=== PATIENT | male | born 1970 | race African-American/Black ===

== ENCOUNTER 2023-01-05 12:18 | Emergency (ER) | payer MEDICAID ==
[~2023-01-05] VITALS: Ht 180.3 cm; Wt 134.0 kg
[2023-01-05 12:36] VITALS: O2SAT 96
[2023-01-05] MEDS ORDERED: IPRATROPIUM BROMIDE (0.02%) 0.5MG/2.5ML NEB HHN NR (14:05)
[2023-01-05] MEDS ORDERED: ALBUTEROL (0.083%) 2.5MG/3ML NEB HHN NR (14:05)
[2023-01-05] MEDS ORDERED: METHYLPREDNISOLONE SOD SUCC 125MG/2ML (ACT-O-VIAL) IM NR (14:05)
[2023-01-05] MEDS ORDERED: ACETAMINOPHEN 325MG TABLET PO STA (14:24)
[2023-01-05] MEDS ORDERED: DOCU-150 MT (16:21)
[2023-01-05] MEDS ORDERED: POLY17PO43 PO (16:21)
[2023-01-05] MEDS ORDERED: D-ME473S50 PO (16:21)
[2023-01-05] MEDS ORDERED: NAPR-681 PO (16:21)
[2023-01-05] MEDS ORDERED: FLUT9.9S BOTHNSTRLS (16:21)
[2023-01-05] MEDS ORDERED: ALBU18HF2 IH (16:21)
[2023-01-05 17:26] VITALS: BP 149/92; PULSE 65; RESP 19; TEMP 98.1
== END 2023-01-05 17:29 | disposition home or self-care (01) ==
LOC: ER 12:18
DX: J45.909 Unspecified asthma, uncomplicated (principal); K59.00 Constipation, unspecified; J32.9 Chronic sinusitis, unspecified
CPT/HCPCS: 70220; 71045; 94640; 96372; 99284; J2930; Z7610 ×4

== ENCOUNTER 2023-03-08 11:43 | Emergency (ER) | payer MEDICAID, OTHER ==
[~2023-03-08] VITALS: Ht 182.9 cm; Wt 131.0 kg
[~2023-03-08 11:43] MED LIST: ALBU18HF2 IH; D-ME473S50 PO; DOCU-150 MT; FLUT9.9S BOTHNSTRLS; NAPR-681 PO; POLY17PO43 PO
[2023-03-08 11:50] VITALS: O2SAT 96
[2023-03-08] MEDS ORDERED: LIDOCAINE 5% PATCH TOP SCH (14:15)
[2023-03-08] MEDS ORDERED: ACETAMINOPHEN 325MG TABLET PO ONE (14:15)
[2023-03-08] MEDS ORDERED: METH-653 MT (16:18)
[2023-03-08] MEDS ORDERED: LIDO700A30 TP (16:18)
[2023-03-08 16:32] VITALS: BP 123/72; PULSE 94; RESP 18; TEMP 98.5
== END 2023-03-08 16:33 | disposition home or self-care (01) ==
LOC: ER 11:43
DX: M54.50 Low back pain, unspecified (principal); J45.909 Unspecified asthma, uncomplicated
CPT/HCPCS: 99283